=== PATIENT | female | born 1970 | race Caucasian/White ===

== ENCOUNTER → 2017-08-15 | Outpatient (CLI) | payer OTHER ==
[~2017-08-15] MED LIST: ULTRAM50 MG PO
== END | disposition home or self-care (01) ==
LOC: AMB 07:28
DX: K64.8 Other hemorrhoids (principal); K57.30 Diverticulosis of large intestine without perforation or abscess without bleeding; D12.2 Benign neoplasm of ascending colon; K62.1 Rectal polyp; N80.0 Endometriosis of uterus; K21.9 Gastro-esophageal reflux disease without esophagitis; E78.5 Hyperlipidemia, unspecified; M79.7 Fibromyalgia; F17.200 Nicotine dependence, unspecified, uncomplicated; Z86.19 Personal history of other infectious and parasitic diseases; Z80.0 Family history of malignant neoplasm of digestive organs; Z82.49 Family history of ischemic heart disease and other diseases of the circulatory system; Z80.8 Family history of malignant neoplasm of other organs or systems; Z82.5 Family history of asthma and other chronic lower respiratory diseases; Z83.3 Family history of diabetes mellitus
CPT/HCPCS: 88305; J2250

== ENCOUNTER 2018-03-26 06:44 | Day surgery (SDC) | payer BC ==
[~2018-03-26] VITALS: Ht 162.6 cm; Wt 63.0 kg
[~2018-03-26 06:44] MED LIST changes: +IRON325 M1 PO; +TYLENOL EXTRA500 MG PO
[2018-03-26 07:03] VITALS: BP 122/65
[2018-03-26 11:10] VITALS: BP 114/59
[2018-03-26 12:10] VITALS: BP 120/65
== END 2018-03-26 12:25 | disposition home or self-care (01) ==
LOC: SDC 06:44
DX: D25.0 Submucous leiomyoma of uterus (principal); M79.7 Fibromyalgia; K21.9 Gastro-esophageal reflux disease without esophagitis; F17.200 Nicotine dependence, unspecified, uncomplicated; Z30.432 Encounter for removal of intrauterine contraceptive device
CPT/HCPCS: 88305; J0131; J0330; J0690; J1100; J1170; J2250; J2405; J3010